=== PATIENT | male | born 1995 | race Caucasian/White ===

== ENCOUNTER → 2017-07-12 | Emergency (ER) | payer OTHER ==
[~2017-07-12] VITALS: Ht 177.8 cm; Wt 84.1 kg
[~2017-07-12] MED LIST: BACTRIM 400 MG-1 TAB PO; NO HOME MEDICATIONS
[2017-07-12 03:15] VITALS: BP 127/59; PULSE 106; TEMP 98.6
== END ==
LOC: COL.ER 03:09
DX: F10.129 Alcohol abuse with intoxication, unspecified (principal); Y90.6 Blood alcohol level of 120-199 mg/100 ml